=== PATIENT | female | born 1945 | race American Indian/Alaskan Native ===

== ENCOUNTER 2016-07-18 10:41 | Inpatient (IN) | payer MEDICARE ==
--- NOTE | 2016-07-18 11:26 | Emergency Department Report ---
Entered by ERIC MISHRA, acting as scribe for COSTA DEGROOT NP. Chief Complaint: Dyspnea/Respdistress Stated Complaint: ABD PAIN Time Seen by Provider: 07/18/16 11:16 - HPI History of Present Illness: 71 y/o non-toxic, non ill-appearing female in no acute distress presents to ED c /o abdominal bloating and pain described as dull with associated nausea, no vomiting, no diarrhea. Pt reports Hx of chronic SOB, no acute changes today. Reports compliance with her coumadin. - ROS Review of Systems: + abdominal pain, bloating, nausea, SOB - vomiting, diarrhea - Exam Vital Signs: Vital Signs 07/18/16 11:07 Temperature 97.5 F L Pulse Rate 62 Respiratory 20 Rate Blood Pressure 127/82 O2 Sat by Pulse 100 Oximetry Physical Exam: Epigastric abdominal pain, non-tender, no point tenderness, normal bowel sounds x 4, non-distended, lungs clear to auscultation bilaterally MSE screening note: Focused history and physical exam performed. Due to findings the following was ordered: EKG, BMP, CBC, lipase, PTT, PT/INR, Troponin, CXR, CT abd/pelvis w/out contrast ED Disposition for MSE Condition: Stable This documentation as recorded by the scribe,ERIC MISHRA,accurately reflects the service I personally performed and the decisions made by ZANE vera MARTIN, YESENIA.
[2016-07-18 11:58] LABS: Basophils % (Auto) 1.4 % (0.0-1.8); Eosinophils % (Auto) 1.6 % (0.0-4.3); Hematocrit 38.8 % (30.3-42.9); Hemoglobin 12.8 gm/dl (10.1-14.3); Mean Corpuscular HGB Conc 33 % (30-34); Mean Corpuscular Hemoglobin 30 pg (28-32); Mean Corpuscular Volume 92 fl (79-97); Platelet Count 216 K/mm3 (140-440); Red Blood Count 4.24 M/mm3 (3.65-5.03); Red Cell Distribution Width 16.2 % (13.2-15.2); White Blood Count 5.8 K/mm3 (4.5-11.0)
--- NOTE | 2016-07-18 12:05 | XRay Report ---
ROUTINE CHEST, TWO VIEWS: HISTORY: Shortness of breath. Cardiomegaly, pulmonary venous congestion and small pleural effusions are identified. No consolidation or pneumothorax. CABG changes and 2-lead pacemaker device are noted. IMPRESSION: Mild CHF.
[2016-07-18 12:09] LABS: INR 2.51 (0.87-1.13); Partial Thromboplastin Time 43.1 Sec. (24.2-36.6)
[2016-07-18 12:16] LABS: Anion Gap 19 mmol/L; BUN/Creatinine Ratio 25.55; Blood Urea Nitrogen 23 mg/dL (7-17); Calcium 9.5 mg/dL (8.4-10.2); Carbon Dioxide 25 mmol/L (22-30); Chloride 101.4 mmol/L (98-107); Glucose 210 mg/dL (65-100); Lipase 19 units/L (13-60); Potassium 3.8 mmol/L (3.6-5.0); Sodium 142 mmol/L (137-145)
[2016-07-18 12:27] LABS: Cholesterol 205 mg/dL (50-199); HDL Cholesterol 62 mg/dL (40-59); LDL Cholesterol,Direct 126 mg/dL (50-130); Triglycerides 86 mg/dL (2-149)
--- NOTE | 2016-07-18 13:09 | Cat Scan Report ---
CT OF THE ABDOMEN AND PELVIS WITHOUT CONTRAST HISTORY: Abdominal pain. TECHNIQUE: Helical CT without contrast. Sagittal and coronal reformatted images. FINDINGS: Mild cardiomegaly is present. A pacemaker device is partially imaged. The visualized lung bases are clear. The liver, biliary system, spleen and adrenal glands are unremarkable. There is mild fatty atrophy of the pancreas. No mass or inflammation. Bilateral renal cysts are identified. A 5 cm cyst is identified at the superior pole the right kidney. A 1 cm cyst is identified in the midpole of the left kidney. There are extensive renal vascular calcifications but no obvious mass, calculus or hydronephrosis. The bladder is unremarkable. There are diffuse arterial calcifications. No aneurysm is detected. The uterus and adnexa are within normal limits. The bowel loops are unremarkable given no oral contrast was administered. Mild sigmoid diverticulosis is noted. Normal appendix. The bony structures are intact. Mild thoracolumbar spondylosis is noted. IMPRESSION: No acute inflammatory process. Mild cardiomegaly. Diffuse atherosclerotic disease. Bilateral simple renal cysts. Mild sigmoid diverticulosis.
--- NOTE | 2016-07-18 15:37 | History and Physical Report ---
History of Present Illness Chief complaint: 71 YO Female with HTN, CHF, Gout, DM, Shingles, Postherpetic Neuralgia presents to ED for evaluation. Pt states that she has experienced pain in her chest, arm , and back. Pain is 5/10, radiates to left arm and back, not relieved with rest or worsened with exertion. Pain is associated with shortness of breath. Pain began yesterday, and has worsened over the past 12 hours. Pain is intermittent, lasts for several minutes. Pt denies NVD, palpitations, prolonged immobility/ travel, leg swelling, calf pain, hemoptysis, unintentional weight loss, fever, night sweats, productive cough, skin rash, or recent ill contacts. Past History Past Medical History: diabetes, heart failure, hypertension Past Surgical History: CABG, Other (Pacemaker, knee) Social history: , lives with family. denies: smoking, alcohol abuse, prescription drug abuse Family history: diabetes, hypertension Medications and Allergies Allergies Allergy/AdvReac Type Severity Reaction Status Date / Time amoxicillin [Amoxicillin] Allergy Diarrhea Verified 10/17/14 16:33 nifedipine [From Procardia] Allergy Swelling Verified 10/17/14 16:33 Home Medications Medication Instructions Recorded Confirmed Last Taken Type Isosorbide Mononitrate [Imdur] 30 mg PO DAILY 01/28/13 07/18/16 07/17/16 History Multivitamin [Multi-Vitamin Daily] 1 each PO DAILY 01/28/13 07/18/16 07/17/16 History Furosemide [Lasix] 40 mg PO DAILY #30 tablet 05/01/13 07/18/16 07/17/16 Rx Potassium Chloride [Klor-Con 8] 20 meq PO QDAY #30 tablet 05/01/13 07/18/1609/26 Rx Spironolactone [Aldactone] 25 mg PO QDAY #30 tablet 05/01/13 07/18/16 07/17/16 Rx glyBURIDE [Diabeta] 5 mg PO BID #30 tablet 05/01/13 07/18/16 07/17/16 Rx Warfarin [Coumadin] 5 mg PO DAILY@1700 #30 tablet 11/25/13 07/18/16 07/16/16 Rx AtorvaSTATin 80 mg PO DAILY 07/18/16 07/18/16 07/17/16 History Carvedilol [Coreg] 6.25 mg PO BID 07/18/16 07/18/16 07/17/16 History Clopidogrel [Plavix] 75 mg PO QDAY 07/18/16 07/18/16 07/17/16 History Colchicine [Colcrys] 0.6 mg PO DAILY 07/18/16 07/18/16 07/17/16 History Furosemide [Lasix TAB] 40 mg PO DAILY 07/18/16 07/18/16 07/17/16 History Pantoprazole [Protonix] 40 mg PO QDAY 07/18/16 07/18/16 07/17/16 History Sacubitril/Valsartan [Entresto 24 1 each PO BID 07/18/16 07/18/16 07/17/16 History mg-26 mg Tablet] valACYclovir [Valtrex] 500 mg PO BID 07/18/16 07/18/16 07/17/16 History Review of Systems All systems: negative Cardiovascular: chest pain Exam - Constitutional Vitals: Temp Pulse Resp BP Pulse Ox 97.5 F L 62 16 127/82 99 07/18/16 11:07 07/18/16 11:07 07/18/16 12:52 07/18/16 11:07 07/18/16 12:52 General appearance: Present: no acute distress, well-nourished - EENT Eyes: Present: PERRL ENT: hearing intact, clear oral mucosa - Neck Neck: Present: supple, normal ROM - Respiratory Respiratory effort: normal Respiratory: bilateral: diminished - Cardiovascular Heart Sounds: Present: S1 & S2. Absent: rub, click - Extremities Extremities: pulses symmetrical, No edema Peripheral Pulses: within normal limits - Abdominal General gastrointestinal: Present: soft, non-tender, non-distended, normal bowel sounds Female genitourinary: Present: normal - Integumentary Integumentary: Present: clear, warm, dry - Musculoskeletal Musculoskeletal: gait normal, strength equal bilaterally - Psychiatric Psychiatric: appropriate mood/affect, intact judgment & insight - Neurologic Neurologic: CNII-XII intact, moves all extremities Results - Labs CBC & Chem 7: 07/18/16 11:25 07/18/16 11:25 Labs: Abnormal lab results 07/18/16 07/18/16 07/18/16 Range/Units 11:25 11:25 11:25 RDW 16.2 H (13.2-15.2) % Nicholas % (Auto) 10.1 H (0.0-7.3) % PT 27.2 H (12.2-14.9) Sec. INR 2.51 H (0.87-1.13) APTT 43.1 H (24.2-36.6) Sec. BUN 23 H (7-17) mg/dL Glucose 210 H (65-100) mg/dL Troponin T 0.039 H (0.00-0.029) ng/mL Cholesterol 205 H (50-199) mg/dL HDL Cholesterol 62 H (40-59) mg/dL Assessment and Plan - Patient Problems (1) ACS (acute coronary syndrome) Current Visit: Yes Status: Acute Plan to address problem: Cardiology consulted, Serial cardiac enzyme, ekg, telemetry, echo, stress test, d dimer, cta chest, (2) CHF (congestive heart failure) Current Visit: Yes Status: Acute Qualifiers: Congestive heart failure type: C Congestive heart failure chronicity: C Plan to address problem: CHF protocol: fluid restriction, uop q shift, afterload reduction, diuretic therapy, cardiology consulted. (3) Accelerated hypertension Current Visit: Yes Status: Acute Plan to address problem: Monitor bp q shift, resume home medication. (4) Diabetes Current Visit: Yes Status: Acute Qualifiers: Diabetes mellitus type: D Diabetes mellitus complication status: D Diabetes mellitus complication detail: D Diabetic retinopathy severity: D Proliferative retinopathy type: P Diabetes mellitus macular edema: D Diabetes mellitus buttermaker continuous churn insulin use: D Laterality: L Chronic kidney disease stage: C Plan to address problem: ADA diet, insulin, accu check (5) DVT prophylaxis Current Visit: Yes Status: Acute
[2016-07-18] MEDS ORDERED: DULCOLAX PR PRN (15:40)
[2016-07-18] MEDS ORDERED: ZOFRAN IV PRN (15:40)
[2016-07-18] MEDS ORDERED: SODIUM CHLORIDE FLUSH SYRINGE 10 ML IV PRN (15:40)
[2016-07-18] MEDS ORDERED: TYLENOL PO PRN (15:40)
[2016-07-18] MEDS ORDERED: MILK OF MAGNESIA PO PRN (15:40)
[2016-07-18] MEDS ORDERED: DUONEB 0.5 MG-3 MG/3 ML SOLN IH PRN (15:40)
[2016-07-18] MEDS ORDERED: PROVENTIL IH PRN (15:48)
[2016-07-18 16:31] LABS: Creatine Kinase MB 1.2 ng/mL (0.0-4.0)
--- NOTE | 2016-07-18 16:36 | Emergency Department Report ---
ED General Adult HPI - General Chief complaint: Dyspnea/Respdistress Stated complaint: ABD PAIN Time Seen by Provider: 07/18/16 15:13 Source: patient, RN notes reviewed Mode of arrival: Ambulatory Limitations: No Limitations - History of Present Illness Initial comments: Primary care sole layer: Dr. Valenzuela Past medical history: Heart disease, CHF, does not know ejection fraction, resolved shingles, history of CABG, recent diagnosis of pulmonary embolus, currently on Coumadin therapy, left-sided pacemaker This is a 71-year-old female. She is previously unknown to me. The patient presents to the ER with a complaint of epigastric pain, burning and bloating. It is relatively new. It is not ready to the back, arms and neck. There is no vomiting or diaphoresis. There is also left anterior arm pain, and left anterior chest wall pain. The patient had at one point complained of shortness of breath, but to me she denies shortness of breath. She reports compliance with her medications, she denies dietary indiscretions, no fevers or chills. Cannot describe exacerbating or relieving factors. In the ER, x-ray of the chest suggested mild congestive heart failure, she was not found to have an active shingles outbreak, stigmata of old healing vesicular lesions were noted, abdomen was soft and benign, a noncontrast CT scan of the abdomen and pelvis showed no acute disease, elevated troponin was noted and is nonspecific in the context of normal renal function. She is given aspirin. Case is discussed with the Hospital physician, Dr. Hansen, who accepts the patient to his service. He indicates he will contact cardiology if he feels like it is necessary. -: Gradual Location: chest, abdomen, left, upper extremity Severity scale (0 -10): 5 Quality: aching Consistency: intermittent Improves with: other (per hpi) Worsens with: other (per hpi) Associated Symptoms: rash. denies: cough, diaphoresis, fever/chills, headaches , loss of appetite, malaise, nausea/vomiting - Related Data Home Medications Medication Instructions Recorded Confirmed Last Taken Isosorbide Mononitrate [Imdur] 30 mg PO DAILY 01/28/13 07/18/16 07/17/16 Multivitamin [Multi-Vitamin Daily] 1 each PO DAILY 01/28/13 07/18/16 07/17/16 AtorvaSTATin 80 mg PO DAILY 07/18/16 07/18/16 07/17/16 Carvedilol [Coreg] 6.25 mg PO BID 07/18/16 07/18/16 07/17/16 Clopidogrel [Plavix] 75 mg PO QDAY 07/18/16 07/18/16 07/17/16 Colchicine [Colcrys] 0.6 mg PO DAILY 07/18/16 07/18/16 07/17/16 Furosemide [Lasix TAB] 40 mg PO DAILY 07/18/16 07/18/16 07/17/16 Pantoprazole [Protonix] 40 mg PO QDAY 07/18/16 07/18/16 07/17/16 valACYclovir [Valtrex] 500 mg PO BID 07/18/16 07/18/16 07/17/16 Previous Rx's Medication Instructions Recorded Last Taken Type Furosemide [Lasix] 40 mg PO DAILY #30 tablet 05/01/13 07/17/16 Rx Potassium Chloride [Klor-Con 8] 20 meq PO QDAY #30 tablet 05/01/13 07/17/16 Rx Spironolactone [Aldactone] 25 mg PO QDAY #30 tablet 05/01/13 07/17/16 Rx glyBURIDE [Diabeta] 5 mg PO BID #30 tablet 05/01/13 07/17/16 Rx Warfarin [Coumadin] 5 mg PO DAILY@1700 #30 tablet 11/25/13 07/16/16 Rx Valsartan [Diovan] 80 mg PO DAILY #30 tablet 07/20/16 Unknown Rx Allergies Allergy/AdvReac Type Severity Reaction Status Date / Time amoxicillin [Amoxicillin] Allergy Diarrhea Verified 10/17/14 16:33 nifedipine [From Procardia] Allergy Swelling Verified 10/17/14 16:33 shellfish derived Allergy Unknown Verified 07/19/16 07:27 ED Review of Systems ROS: Stated complaint: ABD PAIN Other details as noted in HPI Constitutional: denies: fever Eyes: denies: vision change ENT: denies: epistaxis Respiratory: see HPI Cardiovascular: as per HPI Gastrointestinal: abdominal pain Genitourinary: as per HPI Musculoskeletal: as per HPI Skin: as per HPI Neurological: as per HPI Psychiatric: as per HPI ED Past Medical Hx - Past Medical History Previous Medical History?: Yes Hx Hypertension: Yes Hx Heart Attack/AMI: Yes Hx Congestive Heart Failure: Yes Hx Diabetes: Yes Hx Pulmonary Embolism: Yes Hx Liver Disease: No Hx Arthritis: Yes (prescription for pain medication.) Hx HIV: No - Surgical History Past Surgical History?: Yes Hx Open Heart Surgery: Yes (2009 CABG) Hx Pacemaker: Yes Additional Surgical History: CABG 2010, right knee surgery - Social History Smoking Status: Never Smoker Substance Use Type: Alcohol, Prescribed - Medications Home Medications: Home Medications Medication Instructions Recorded Confirmed Last Taken Type Isosorbide Mononitrate [Imdur] 30 mg PO DAILY 01/28/13 07/18/16 07/17/16 History Multivitamin [Multi-Vitamin Daily] 1 each PO DAILY 01/28/13 07/18/16 07/17/16 History Furosemide [Lasix] 40 mg PO DAILY #30 tablet 05/01/13 07/18/16 07/17/16 Rx Potassium Chloride [Klor-Con 8] 20 meq PO QDAY #30 tablet 05/01/13 07/18/1609/26 Rx Spironolactone [Aldactone] 25 mg PO QDAY #30 tablet 05/01/13 07/18/16 07/17/16 Rx glyBURIDE [Diabeta] 5 mg PO BID #30 tablet 05/01/13 07/18/16 07/17/16 Rx Warfarin [Coumadin] 5 mg PO DAILY@1700 #30 tablet 11/25/13 07/18/16 07/16/16 Rx AtorvaSTATin 80 mg PO DAILY 07/18/16 07/18/16 07/17/16 History Carvedilol [Coreg] 6.25 mg PO BID 07/18/16 07/18/16 07/17/16 History Clopidogrel [Plavix] 75 mg PO QDAY 07/18/16 07/18/16 07/17/16 History Colchicine [Colcrys] 0.6 mg PO DAILY 07/18/16 07/18/16 07/17/16 History Furosemide [Lasix TAB] 40 mg PO DAILY 07/18/16 07/18/16 07/17/16 History Pantoprazole [Protonix] 40 mg PO QDAY 07/18/16 07/18/16 07/17/16 History valACYclovir [Valtrex] 500 mg PO BID 07/18/16 07/18/16 07/17/16 History Valsartan [Diovan] 80 mg PO DAILY #30 tablet 07/20/16 Unknown Rx ED Physical Exam - General Limitations: No Limitations General appearance: alert, in no apparent distress - Head Head exam: Present: atraumatic, normocephalic - Eye Eye exam: Present: normal appearance, EOMI. Absent: nystagmus - ENT ENT exam: Present: normal exam, normal orophraynx, mucous membranes moist, normal external ear exam - Neck Neck exam: Present: normal inspection, full ROM. Absent: tenderness, meningismus - Respiratory Respiratory exam: Present: normal lung sounds bilaterally. Absent: respiratory distress, wheezes, rales, rhonchi, stridor, chest wall tenderness, accessory muscle use, decreased breath sounds - Cardiovascular Cardiovascular Exam: Present: regular rate, normal rhythm, normal heart sounds. Absent: bradycardia, tachycardia, irregular rhythm, systolic murmur, diastolic murmur, rubs, gallop - GI/Abdominal GI/Abdominal exam: Present: soft, normal bowel sounds. Absent: distended, tenderness, guarding, rebound, rigid, pulsatile mass - Extremities Exam Extremities exam: Present: normal inspection, full ROM, normal capillary refill. Absent: tenderness, pedal edema, joint swelling, calf tenderness - Back Exam Back exam: Present: normal inspection, full ROM. Absent: tenderness, CVA tenderness (R), CVA tenderness (L), muscle spasm, paraspinal tenderness, vertebral tenderness - Neurological Exam Neurological exam: Present: alert, oriented X3, normal gait, other (Extraocular movements intact. Tongue midline. No facial droop. Facial sensation intact to light touch in the V1, V2, V3 distribution bilaterally. 5 and 5 strength in 4 extremities.. Sensation is intact to light touch in 4 extremities.). Absent : motor sensory deficit - Psychiatric Psychiatric exam: Present: normal affect, normal mood - Skin Skin exam: Present: dry, rash (there is no redness, pus or streaking. Old healing vesicles noted. No active vesicular outbreak noted. No cellulitis.) ED Course Vital Signs 07/18/16 07/18/16 07/18/16 11:07 12:52 16:12 Temperature 97.5 F L 98.7 F Pulse Rate 62 68 Respiratory 20 16 16 Rate Blood Pressure 127/82 Blood Pressure 145/85 [Left] O2 Sat by Pulse 100 99 99 Oximetry - Reevaluation(s) Reevaluation #1: 07/18/16 16:35 differential diagnosis: GERD, reflux, hiatal hernia Assessment and plan: 71-year-old female with atypical symptoms, reported intermittent shortness of breath, epigastric abdominal discomfort, nonspecific troponin, x-ray of the chest suggesting mild CHF, noncontrast CT scan of the belly not showing anything significant to be admitted for further cardiology evaluation and management. 07/18/16 16:46 ED Medical Decision Making - Lab Data Result diagrams: 07/18/16 11:25 07/20/16 09:30 Vital Signs 07/18/16 07/18/16 07/18/16 11:07 12:52 16:12 Temperature 97.5 F L 98.7 F Pulse Rate 62 68 Respiratory 20 16 16 Rate Blood Pressure 127/82 Blood Pressure 145/85 [Left] O2 Sat by Pulse 100 99 99 Oximetry Lab Results 07/18/16 07/18/16 07/18/16 Range/Units 11:25 11:25 11:25 WBC 5.8 (4.5-11.0) K/mm3 RBC 4.24 (3.65-5.03) M/mm3 Hgb 12.8 (10.1-14.3) gm/dl Hct 38.8 (30.3-42.9) % MCV 92 (79-97) fl MCH 30 (28-32) pg MCHC 33 (30-34) % RDW 16.2 H (13.2-15.2) % Plt Count 216 (140-440) K/mm3 Lymph % (Auto) 31.7 (13.4-35.0) % Campbell % (Auto) 10.1 H (0.0-7.3) % Eos % (Auto) 1.6 (0.0-4.3) % Baso % (Auto) 1.4 (0.0-1.8) % Lymph # 1.8 (1.2-5.4) K/mm3 Campbell # 0.6 (0.0-0.8) K/mm3 Eos # 0.1 (0.0-0.4) K/mm3 Baso # 0.1 (0.0-0.1) K/mm3 Seg Neutrophils % 55.2 (40.0-70.0) % Seg Neutrophils # 3.2 (1.8-7.7) K/mm3 PT 27.2 H (12.2-14.9) Sec. INR 2.51 H (0.87-1.13) APTT 43.1 H (24.2-36.6) Sec. D-Dimer (0-234) ng/mlDDU Sodium 142 (137-145) mmol/L Potassium 3.8 (3.6-5.0) mmol/L Chloride 101.4 (98-107) mmol/L Carbon Dioxide 25 (22-30) mmol/L Anion Gap 19 mmol/L BUN 23 H (7-17) mg/dL Creatinine 0.9 (0.7-1.2) mg/dL Estimated GFR > 60 ml/min BUN/Creatinine Ratio 25.55 % Glucose 210 H (65-100) mg/dL Calcium 9.5 (8.4-10.2) mg/dL Total Creatine Kinase (30-135) units/L CK-MB (CK-2) (0.0-4.0) ng/mL CK-MB (CK-2) Rel Index (0-4) Troponin T 0.039 H (0.00-0.029) ng/mL Triglycerides 86 (2-149) mg/dL Cholesterol 205 H (50-199) mg/dL LDL Cholesterol Direct 126 (50-130) mg/dL HDL Cholesterol 62 H (40-59) mg/dL Cholesterol/HDL Ratio 3.30 % Lipase 19 (13-60) units/L 07/18/16 07/18/16 Range/Units 15:48 15:48 WBC (4.5-11.0) K/mm3 RBC (3.65-5.03) M/mm3 Hgb (10.1-14.3) gm/dl Hct (30.3-42.9) % MCV (79-97) fl MCH (28-32) pg MCHC (30-34) % RDW (13.2-15.2) % Plt Count (140-440) K/mm3 Lymph % (Auto) (13.4-35.0) % Campbell % (Auto) (0.0-7.3) % Eos % (Auto) (0.0-4.3) % Baso % (Auto) (0.0-1.8) % Lymph # (1.2-5.4) K/mm3 Campbell # (0.0-0.8) K/mm3 Eos # (0.0-0.4) K/mm3 Baso # (0.0-0.1) K/mm3 Seg Neutrophils % (40.0-70.0) % Seg Neutrophils # (1.8-7.7) K/mm3 PT (12.2-14.9) Sec. INR (0.87-1.13) APTT (24.2-36.6) Sec. D-Dimer 512.82 H (0-234) ng/mlDDU Sodium (137-145) mmol/L Potassium (3.6-5.0) mmol/L Chloride (98-107) mmol/L Carbon Dioxide (22-30) mmol/L Anion Gap mmol/L BUN (7-17) mg/dL Creatinine (0.7-1.2) mg/dL Estimated GFR ml/min BUN/Creatinine Ratio % Glucose (65-100) mg/dL Calcium (8.4-10.2) mg/dL Total Creatine Kinase 53 (30-135) units/L CK-MB (CK-2) 1.2 (0.0-4.0) ng/mL CK-MB (CK-2) Rel Index 2.2 (0-4) Troponin T 0.042 H (0.00-0.029) ng/mL Triglycerides (2-149) mg/dL Cholesterol (50-199) mg/dL LDL Cholesterol Direct (50-130) mg/dL HDL Cholesterol (40-59) mg/dL Cholesterol/HDL Ratio % Lipase (13-60) units/L - EKG Data -: EKG Interpreted by Me - EKG Data When compared to previous EKG there are: previous EKG unavailable 07/18/16 16:47 Normal sinus, 68 bpm, left axis deviation, left anterior fascicular block, abnormal EKG, not STEMI. - Radiology Data Radiology results: report reviewed, image reviewed Critical care attestation.: If time is entered above; I have spent that time in minutes in the direct care of this critically ill patient, excluding procedure time. ED Disposition Clinical Impression: Acute abdominal pain, Elevated troponin Disposition: OP ADMITTED IP TO THIS HOSP Is pt being admited?: Yes Does the pt Need Aspirin: Yes Condition: Stable
[2016-07-18] MEDS ORDERED: ASPIRIN PO ONE (16:48)
[2016-07-18] MEDS: COUMADIN PO SCH (18:57)
[2016-07-18 20:23] LABS: Creatine Kinase MB 1.2 ng/mL (0.0-4.0)
[2016-07-18] MEDS: COREG PO SCH (21:13)
[2016-07-18] MEDS: PERCOCET 5/325 PO PRN (23:21)
[2016-07-19 00:11] LABS: Creatine Kinase MB 1.2 ng/mL (0.0-4.0)
[2016-07-19 06:48] LABS: INR 2.42 (0.87-1.13)
[2016-07-19] MEDS ORDERED: NON-FORMULARY (Atorvastatin 80 MG) PO SCH (10:00)
[2016-07-19] MEDS ORDERED: KLOR-CON 8 PO SCH (10:00)
[2016-07-19] MEDS ORDERED: NON-FORMULARY (Multivitamin [Multi-Vitamin Daily] 1 EACH) PO SCH (10:00)
[2016-07-19] MEDS ORDERED: ISOSORBIDE MONONITRATE 30 MG PO SCH (10:00)
[2016-07-19] MEDS ORDERED: LEXISCAN IV ONE ×2 (10:41→10:48)
--- NOTE | 2016-07-19 12:02 | Consultation ---
History of Present Illness Consult date: 07/19/16 Requesting physician: GRETTA TRAN Consult reason: abnormal cardiac enzymes History of present illness: The patient is a 71-year-old female who is followed in our office by Dr. Valenzuela. She presented with c/o epigastric pain and tenderness and nausea for the past several days prior to arrival. She also reports orthopnea and SOB, which are unchanged from her baseline. She has a past medical history significant for an area artery disease status post CABG in 2010, ischemic cardiomyopathy, AICD in situ, chronic systolic heart failure, paroxysmal atrial fibrillation (on Coumadin), hypertension, diabetes, hyperlipidemia. She denies any precipitating, aggravating, or alleviating factors. She denies chest pain. She reports compliance with her medications and dietary restrictions. Past History Past Medical History: atrial fib, CAD, diabetes, heart failure, hypertension, other (ICMP) Past Surgical History: CABG, Other (Pacemaker, knee) Social history: , lives with family. denies: smoking, alcohol abuse, prescription drug abuse Family history: diabetes, hypertension Medications and Allergies Allergies Allergy/AdvReac Type Severity Reaction Status Date / Time amoxicillin [Amoxicillin] Allergy Diarrhea Verified 10/17/14 16:33 nifedipine [From Procardia] Allergy Swelling Verified 10/17/14 16:33 shellfish derived Allergy Unknown Verified 07/19/16 07:27 Home Medications Medication Instructions Recorded Confirmed Last Taken Type Isosorbide Mononitrate [Imdur] 30 mg PO DAILY 01/28/13 07/18/16 07/17/16 History Multivitamin [Multi-Vitamin Daily] 1 each PO DAILY 01/28/13 07/18/16 07/17/16 History Furosemide [Lasix] 40 mg PO DAILY #30 tablet 05/01/13 07/18/16 07/17/16 Rx Potassium Chloride [Klor-Con 8] 20 meq PO QDAY #30 tablet 05/01/13 07/18/1609/26 Rx Spironolactone [Aldactone] 25 mg PO QDAY #30 tablet 05/01/13 07/18/16 07/17/16 Rx glyBURIDE [Diabeta] 5 mg PO BID #30 tablet 05/01/13 07/18/16 07/17/16 Rx Warfarin [Coumadin] 5 mg PO DAILY@1700 #30 tablet 0907/18/16 07/16/16 Rx AtorvaSTATin 80 mg PO DAILY 07/18/16 07/18/16 07/17/16 History Carvedilol [Coreg] 6.25 mg PO BID 07/18/16 07/18/16 07/17/16 History Clopidogrel [Plavix] 75 mg PO QDAY 07/18/16 07/18/16 07/17/16 History Colchicine [Colcrys] 0.6 mg PO DAILY 07/18/16 07/18/16 07/17/16 History Furosemide [Lasix TAB] 40 mg PO DAILY 07/18/16 07/18/16 07/17/16 History Pantoprazole [Protonix] 40 mg PO QDAY 07/18/16 07/18/16 07/17/16 History Sacubitril/Valsartan [Entresto 24 1 each PO BID 07/18/16 07/18/16 07/17/16 History mg-26 mg Tablet] valACYclovir [Valtrex] 500 mg PO BID 07/18/16 07/18/16 07/17/16 History Active Meds: Active Medications Acetaminophen (Tylenol) 650 mg PO Q4H PRN PRN Reason: Pain MILD(1-3)/Fever >100.5/PHILLIPS Albuterol (Proventil) 2.5 mg IH Q4HRT PRN PRN Reason: Shortness Of Breath Atorvastatin Calcium (Lipitor) 40 mg PO QHS [facility] Last Admin: 07/18/16 21:13 Dose: Not Given Bisacodyl (Dulcolax) 10 mg ID QDAY PRN PRN Reason: Constipation unrelieved by MOM Carvedilol (Coreg) 6.25 mg PO BID [facility] Last Admin: 07/18/16 21:13 Dose: 6.25 mg Clopidogrel Bisulfate (Plavix) 75 mg PO QDAY [facility] Colchicine (Colcrys) 0.6 mg PO DAILY [facility] Furosemide (Lasix) 40 mg PO DAILY [facility] Isosorbide Mononitrate (Imdur) 30 mg PO DAILY [facility] Magnesium Hydroxide (Milk Of Magnesia) 30 ml PO Q4H PRN PRN Reason: Constipation Miscellaneous Medication (Sacubitril/Valsartan [Entresto 24 Mg-26 Mg Tablet]) 1 each PO BID [facility] Multivitamins/Minerals (Theragran-M Tab) 1 each PO QDAY [facility] Ondansetron HCl (Zofran) 4 mg IV Q8H PRN PRN Reason: N/V unrelieved by Reglan Oxycodone/Acetaminophen (Percocet 5/325) 1 tab PO Q6H PRN PRN Reason: Pain , Severe (7-10) Last Admin: 07/18/16 23:21 Dose: 1 tab Pantoprazole Sodium (Protonix) 40 mg PO QDAY [facility] Potassium Chloride (K-Dur) 20 meq PO QDAY [facility] Sodium Chloride (Sodium Chloride Flush Syringe 10 Ml) 10 ml IV PRN PRN PRN Reason: LINE FLUSH Spironolactone (Aldactone) 25 mg PO QDAY [facility] Warfarin Sodium (Coumadin) 5 mg PO DAILY@1700 [facility] PRN Reason: Protocol Last Admin: 07/18/16 18:57 Dose: 5 mg Review of Systems Constitutional: no weight loss, no weight gain, no fever, no chills, no sweats Ears, nose, mouth and throat: no ear pain, no nose pain, no sinus pressure, no sinus pain Cardiovascular: orthopnea, shortness of breath, dyspnea on exertion, no chest pain, no palpitations, no rapid/irregular heart beat, no edema, no syncope, no lightheadedness, no leg edema Respiratory: shortness of breath, dyspnea on exertion, no cough, no congestion, no wheezing, no pain Gastrointestinal: abdominal pain, nausea, no vomiting, no diarrhea, no constipation, no change in bowel habits Genitourinary Female: no pelvic pain, no flank pain, no dysuria, no urinary frequency, no urgency Musculoskeletal: no neck stiffness, no neck pain, no shooting arm pain, no arm numbness/tingling, no low back pain, no shooting leg pain, no leg numbness/ tingling, no redness of joints Integumentary: no rash, no pruritis, no redness, no sores, no wounds Neurological: no paralysis, no weakness, no parathesias, no numbness, no tingling Endocrine: no cold intolerance, no heat intolerance Hematologic/Lymphatic: no easy bruising, no easy bleeding, no lymphadenopathy Allergic/Immunologic: no urticaria, no wheezing, no persistent infections Physical Examination Vital Signs Temp Pulse Resp BP Pulse Ox 97.5 F L 62 20 127/82 100 07/18/16 11:07 07/18/16 11:07 07/18/16 11:07 07/18/16 11:07 07/18/16 11:07 General appearance: no acute distress HEENT: Positive: PERRL, Normocephaly, Mucus Membranes Moist Neck: Positive: neck supple, trachea midline Cardiac: Positive: Reg Rate and Rhythm, S1/S2, Systolic Murmur Lungs: Positive: clear to auscultation Neuro: Positive: Grossly Intact, Cranial Nerve 2-12 Intact Abdomen: Positive: Soft, Active Bowel Sounds, Tender Skin: Positive: Clear. Negative: Rash, Wound Musculoskeletal: No Fluid Collection, No Pain, Normal Range of Motion Extremities: Present: upper extr. pulses, lower extr. pulses. Absent: edema Results 07/18/16 11:25 07/18/16 11:25 Cardiac Enzymes 07/18/16 07/18/16 Range/Units 19:27 23:13 CK-MB (CK-2) 1.2 1.2 (0.0-4.0) ng/mL Coagulation 07/19/16 Range/Units 05:41 PT 26.4 H (12.2-14.9) Sec. INR 2.42 H (0.87-1.13) - Imaging and Cardiology Echo: report reviewed EKG: report reviewed, image reviewed EKG interpretations - Telemetry EKG Rhythm: Sinus Rhythm - EKG Sinus rhythms and dysrhythmias: sinus rhythm AV and intraventricular conduction: left bundle branch block Assessment and Plan Plan: Give extra dose of IV lasix, 20mg, now. Cont all other current medical management, including Entresto (non-formulary). S/p lexiscan MPI stress test this AM which was negative for ischemia. Await echo. Possible d/c home in AM. The patient has been seen in conjunction with Dr. Canchola who agrees with the assessment and plan of care. - Patient Problems (1) Acute on chronic systolic heart failure Current Visit: Yes Status: Acute (2) Epigastric pain Current Visit: Yes Status: Acute (3) Elevated troponin Current Visit: Yes Status: Acute Plan to address problem: negative for AMI (4) CAD (coronary artery disease) Current Visit: Yes Status: Chronic Qualifiers: Coronary Disease-Associated Artery/Lesion type: C [place] vs. transplanted heart: N Associated angina: A (5) S/P CABG x 4 Current Visit: No Status: Chronic (6) Cardiomyopathy, ischemic Current Visit: Yes Status: Chronic (7) Diabetes mellitus Current Visit: Yes Status: Chronic Qualifiers: Diabetes mellitus type: D Diabetes mellitus complication status: D Diabetes mellitus complication detail: D Diabetic retinopathy severity: D Proliferative retinopathy type: P Diabetes mellitus macular edema: D Diabetes mellitus parts counterman insulin use: D Laterality: L Chronic kidney disease stage: C (8) HTN (hypertension) Current Visit: Yes Status: Chronic Qualifiers: Hypertension type: H (9) Hyperlipidemia Current Visit: Yes Status: Chronic Qualifiers: Hyperlipidemia type: H (10) Paroxysmal a-fib Current Visit: Yes Status: Chronic (11) AICD (automatic cardioverter/defibrillator) present Current Visit: Yes Status: Chronic
--- NOTE | 2016-07-19 12:12 | Admit Criteria Form ---
<CEZAR AMOR - Last Filed: 07/19/16 12:11> Admission Criteria Documentation: CHEST PAIN Clinical Indications for Admission to Inpatient Care (Place 'X' for any and all applicable criteria): Admission is indicated for chest pain and ANY ONE of the following(1)(2)(3)(4)(5 ): [X]I. Angina with acute coronary syndrome (Also use Myocardial Infarction or Angina guideline) [ ]II. Hemodynamic instability [ ]III. Angina needing acute intervention as indicated by ALL of the following( 11)(12): [ ]a) Unstable angina is present as indicated by angina that is ANY ONE of the following: [ ]i) New onset [ ]ii) Nocturnal [ ]iii) Prolonged at rest [ ]iv) Progressive [ ]b) Angina warrants acute intervention as indicated by ANY ONE of the following: [ ]i) Recurrent angina (e.g, not responding as previously to treatment) [ ]ii) Angina at rest or with low-level activities despite initial medical therapy [ ]iii) New or presumably new ST-segment depression on ECG [ ]iv) Signs or symptoms of heart failure (eg, dyspnea, pulmonary edema) [ ]v) New or worsening mitral regurgitation [ ]vi) Hemodynamic instability [ ]vii) Dangerous arrhythmia (eg, sustained ventricular tachycardia) [ ]viii) History of percutaneous coronary intervention within 6 months [ ]ix) History of coronary artery bypass graft surgery [ ]x) LALO risk score of 2 or greater[A] [ ]xi) History of Diabetes(14) [ ]xii) High-risk cardiac ischemia findings on noninvasive testing (e.g, echocardiogram, treadmill testing, nuclear scan) [ ]xiii) Chronic renal insufficiency (ie, estimated GFR less than 60 mL/min/1.732m) [ ]xiv) Left ventricular ejection fraction less than 40% [ ]IV. Evidence of MS (eg, cardiac biomarkers positive, ST-segment elevation on ECG) also use Myocardial Infarction Criteria Form. [ ]V. Pulmonary edema [ ]. Respiratory distress [ ]VII. Chest pain indicative of serious diagnosis other than coronary artery disease (eg, aortic dissection) [ ]VIII. Contraindications and/or Inappropriate clinical situations for Observational Care in patients with Chest Pain, when ANY ONE of the following is required: [ ]a) Patient with risk factor for pulmonary embolism, acute coronary syndrome and myocardial infarction (18) [ ]b) Patient with Pulmonary embolism require an average LOS of 4.3 days, therefore emergency department observation management is inappropriate 18,23 [ ]c) Painful condition/s in the elderly, have the highest rate of recidivism after emergency department observation management (10.8%) 20,21,22 [ ]d) Elevated cardiac biomarker requires intensive and exhaustive care (19) [ ]IX. General contraindications and/or Inappropriate clinical situations for Observational Care in patients with Chest Pain, when ANY ONE of the following is required: [ ]a) Prediction of prolongation of LOS based on ANY ONE of the following may be considered as a contraindication for observational care 2, 3, 4, 5, 6, 7, 8, 9, 10, 11 [ ]i) Age > 65 yrs. [ ]ii) Patient arriving by ambulance [ ]iii) Patient with high acuity [ ]iv) Patient requiring vital sign monitoring [ ]v) Patient on IV medication [ ]b) Systolic blood pressures 180mmHg 3,12 [ ]c) Patient with altered mental status including delirium and other alteration of consciousness, (3) [ ]d) Patient whose discharge disposition will be to a [facility] home or rehabilitation home should not be managed in Emergency Department Observation Unit. CMS rule requires 3 days hospital stay before such placement. 3,13 [ ]e) Patient with failure to thrive due to broad array of etiologies 3,16,17 [ ]f) Inability to ambulate 3,14 Extended stay beyond goal length of stay may be needed for (1)(28): [ ]a) Specific condition diagnosed after evaluation (eg, pulmonary embolism, aortic dissection) [ ]b) Unstable angina [ ]c) Continued suspicion of acute coronary syndrome with inability to complete needed cardiac evaluation (eg, patient clinically unable to undergo stress testing) [ ]d) Myocardial infarction (Contents from ANGINA and CHEST PAIN clinical indications for admission to inpatient care have been integrated in this form) The original [facility] content created by [employer] has been revised. The portions of the content which have been revised are identified through the use of italic text or in bold, and [facility] has neither reviewed nor approved the modified material. All other unmodified content is copyright [facility]. Please see references footnoted in the original [facility] edition 2016 Admission Criteria Met: Yes <GRETTA TRAN - Last Filed: 07/20/16 12:24> Admission Criteria Met: Yes
[2016-07-19] MEDS ORDERED: LASIX IV ONE ×2 (13:00→16:00)
--- NOTE | 2016-07-19 13:01 | Progress Note ---
Assessment and Plan - Patient Problems (1) ACS (acute coronary syndrome) Current Visit: Yes Status: Acute Plan to address problem: Cardiology consulted, Serial cardiac enzyme, ekg, telemetry, echo, stress test, d dimer, cta chest, (2) CHF (congestive heart failure) Current Visit: Yes Status: Acute Qualifiers: Congestive heart failure type: C Congestive heart failure chronicity: C Plan to address problem: CHF protocol: fluid restriction, uop q shift, afterload reduction, diuretic therapy, cardiology consulted. (3) Accelerated hypertension Current Visit: Yes Status: Acute Plan to address problem: Monitor bp q shift, resume home medication. (4) Diabetes Current Visit: Yes Status: Acute Qualifiers: Diabetes mellitus type: D Diabetes mellitus complication status: D Diabetes mellitus complication detail: D Diabetic retinopathy severity: D Proliferative retinopathy type: P Diabetes mellitus macular edema: D Diabetes mellitus joint terminal attack controller insulin use: D Laterality: L Chronic kidney disease stage: C Plan to address problem: ADA diet, insulin, accu check (5) DVT prophylaxis Current Visit: Yes Status: Acute History Interval history: Pt resting in be, No reported nursing events. Pt denies pain. discussed care plan with family. Hospitalist Physical - Constitutional Vitals: Temp Pulse Resp BP Pulse Ox 97.7 F 65 20 139/80 100 07/19/16 07:05 07/19/16 11:45 07/19/16 07:05 07/19/16 11:29 07/19/16 07:05 General appearance: Present: no acute distress - EENT Eyes: Present: PERRL, EOM intact ENT: hearing intact - Neck Neck: Present: supple - Respiratory Respiratory: bilateral: diminished - Cardiovascular Rhythm: regular Heart Sounds: Present: S1 & S2 - Extremities Extremities: no ischemia Extremity abnormal: edema Peripheral Pulses: within normal limits - Abdominal General gastrointestinal: soft, non-tender, non-distended - Integumentary Integumentary: Present: clear, dry - Psychiatric Psychiatric: appropriate mood/affect - Neurologic Neurologic: CNII-XII intact Results - Labs CBC & Chem 7: 07/18/16 11:25 07/18/16 11:25 Labs: Laboratory Last Values WBC 5.8 K/mm3 (4.5-11.0) 07/18/16 11:25 RBC 4.24 M/mm3 (3.65-5.03) 07/18/16 11:25 Hgb 12.8 gm/dl (10.1-14.3) 07/18/16 11:25 Hct 38.8 % (30.3-42.9) 07/18/16 11:25 MCV 92 fl (79-97) 07/18/16 11:25 MCH 30 pg (28-32) 07/18/16 11:25 MCHC 33 % (30-34) 07/18/16 11:25 RDW 16.2 % (13.2-15.2) H 07/18/16 11:25 Plt Count 216 K/mm3 (140-440) 07/18/16 11:25 Lymph % (Auto) 31.7 % (13.4-35.0) 07/18/16 11:25 [place] % (Auto) 10.1 % (0.0-7.3) H 07/18/16 11:25 Eos % (Auto) 1.6 % (0.0-4.3) 07/18/16 11:25 Baso % (Auto) 1.4 % (0.0-1.8) 07/18/16 11:25 Lymph # 1.8 K/mm3 (1.2-5.4) 07/18/16 11:25 [place] # 0.6 K/mm3 (0.0-0.8) 07/18/16 11:25 Eos # 0.1 K/mm3 (0.0-0.4) 07/18/16 11:25 Baso # 0.1 K/mm3 (0.0-0.1) 07/18/16 11:25 Seg Neutrophils % 55.2 % (40.0-70.0) 07/18/16 11:25 Seg Neutrophils # 3.2 K/mm3 (1.8-7.7) 07/18/16 11:25 PT 26.4 Sec. (12.2-14.9) H 07/19/16 05:41 INR 2.42 (0.87-1.13) H 07/19/16 05:41 APTT 43.1 Sec. (24.2-36.6) H 07/18/16 11:25 D-Dimer 512.82 ng/mlDDU (0-234) H 07/18/16 15:48 Sodium 142 mmol/L (137-145) 07/18/16 11:25 Potassium 3.8 mmol/L (3.6-5.0) 07/18/16 11:25 Chloride 101.4 mmol/L (98-107) 07/18/16 11:25 Carbon Dioxide 25 mmol/L (22-30) 07/18/16 11:25 Anion Gap 19 mmol/L 07/18/16 11:25 BUN 23 mg/dL (7-17) H 07/18/16 11:25 Creatinine 0.9 mg/dL (0.7-1.2) 07/18/16 11:25 Estimated GFR > 60 ml/min 07/18/16 11:25 BUN/Creatinine Ratio 25.55 % 07/18/16 11:25 Glucose 210 mg/dL (65-100) H 07/18/16 11:25 POC Glucose 166 (70-105) H 07/19/16 07:59 Calcium 9.5 mg/dL (8.4-10.2) 07/18/16 11:25 Total Creatine Kinase 53 units/L (30-135) 07/18/16 23:13 CK-MB (CK-2) 1.2 ng/mL (0.0-4.0) 07/18/16 23:13 CK-MB (CK-2) Rel Index 2.2 (0-4) 07/18/16 23:13 Troponin T 0.054 ng/mL (0.00-0.029) H D 07/18/16 23:13 NT-Pro-B Natriuret Pep 8746 pg/mL (0-900) H 07/18/16 15:24 Triglycerides 86 mg/dL (2-149) 07/18/16 11:25 Cholesterol 205 mg/dL (50-199) H 07/18/16 11:25 LDL Cholesterol Direct 126 mg/dL (50-130) 07/18/16 11:25 HDL Cholesterol 62 mg/dL (40-59) H 07/18/16 11:25 Cholesterol/HDL Ratio 3.30 % 07/18/16 11:25 Lipase 19 units/L (13-60) 07/18/16 11:25
[2016-07-19] MEDS: ALDACTONE PO SCH (16:04)
[2016-07-19] MEDS: IMDUR PO SCH (16:05)
[2016-07-19] MEDS: COREG PO SCH ×2 (16:05→22:29)
[2016-07-19] MEDS: COLCRYS PO SCH (16:05)
[2016-07-19] MEDS: K-DUR PO SCH (16:05)
[2016-07-19] MEDS: LASIX PO SCH (16:06)
[2016-07-19] MEDS: PROTONIX PO SCH (16:06)
[2016-07-19] MEDS: PLAVIX PO SCH (16:06)
[2016-07-19] MEDS: THERAGRAN-M Tab PO SCH (16:06)
[2016-07-19] MEDS: COUMADIN PO SCH (17:50)
[2016-07-19] MEDS: SACUBITRIL PO SCH (17:51)
[2016-07-19] MEDS: VALSARTAN PO SCH (17:51)
[2016-07-19] MEDS: PERCOCET 5/325 PO PRN (22:29)
--- NOTE | 2016-07-20 03:10 | Treadmill Report ---
PROCEDURE: Nuclear perfusion study. READING PHYSICIAN: Dr. Valenzuela REASON FOR STUDY: Chest pain. IMAGING PROTOCOL: The patient received 10 mCi of Technetium 99m Tetrofosmin for resting image and 28 mCi of Technetium 99m Tetrofosmin for stress imaging. The imaging for the whole procedure was completed 30-90 minutes following the initial injection of Technetium 99m tetrofosmin. The SPECT imaging in the 180 degree arc was performed in the right anterior oblique projection. Computerized reconstruction of the images was performed for analysis. IMAGING RESULTS: Cavity is dilated on both stress and rest. Distribution radionuclide is normal in the anterior, septal, largely absent at the apical, anterior apical, inferior moderate of large and inferolateral region. Gated SPECT, EF 18% with global hypokinesis. No reversibility noted in the inferior apical and in the inferolateral regions, but large absent in the those territories. The patient infused Lexiscan with no EKG changes. SUMMARY: 1. Negative Lexiscan EKG. 2. No significant stress ischemia. 3. There is large infarction in the inferior, apical, apical inferior, inferolateral and regions with normal perfusion in the anterior and septal region. Gated SPECT EF 18%. JOB# [id number] CASSIE/LEONIDES
[2016-07-20 07:38] LABS: INR 2.67 (0.87-1.13)
[2016-07-20 09:25] VITALS: BP 108/69
--- NOTE | 2016-07-20 09:43 | Progress Note ---
Assessment and Plan acute on chronic systolic heart failure NSTEMI type 2 htn chol ischemic cmp aicd rec: pt has no ischemia on stress and echo ef 20% and pt is compensated, pt could not tolerate entresto and cont diovan, coreg, lasix and aldactone and coumdain and followup in office Subjective Date of service: 07/20/16 Principal diagnosis: sob Interval history: pt sob has improved and abd pain has improved Objective Vital Signs Temp Pulse Pulse Resp Resp BP BP 07/20/16 08:50 97.8 F 60 18 07/20/16 04:05 98.3 F 80 18 118/80 07/20/16 00:00 98.3 F 61 18 103/57 07/19/16 23:29 20 07/19/16 22:29 63 20 103/62 07/19/16 20:52 22 07/19/16 20:51 22 07/19/16 20:00 98.0 F 63 18 103/62 07/19/16 19:37 60 07/19/16 16:00 98.2 F 80 20 135/75 07/19/16 12:00 98 F 62 20 126/73 07/19/16 11:45 65 07/19/16 11:29 60 139/80 07/19/16 11:28 71 143/91 07/19/16 11:27 75 147/81 07/19/16 11:26 76 141/96 07/19/16 11:25 76 124/83 07/19/16 11:23 73 141/94 BP Pulse Ox 07/20/16 08:50 108/69 99 07/20/16 04:05 97 07/20/16 00:00 98 07/19/16 23:29 07/19/16 22:29 07/19/16 20:52 96 07/19/16 20:51 07/19/16 20:00 97 07/19/16 19:37 07/19/16 16:00 97 07/19/16 12:00 97 07/19/16 11:45 07/19/16 11:29 07/19/16 11:28 07/19/16 11:27 07/19/16 11:26 07/19/16 11:25 07/19/16 11:23 - Physical Examination General: No Apparent Distress HEENT: Positive: PERRL, Normocephaly, Mucus Membranes Moist Neck: Positive: neck supple, trachea midline Cardiac: Positive: Reg Rate and Rhythm Lungs: Positive: clear to auscultation Neuro: Positive: Grossly Intact, Cranial Nerve 2-12 Intact Abdomen: Positive: Soft, Active Bowel Sounds, Tender Skin: Positive: Clear. Negative: Rash, Wound Musculoskeletal: No Fluid Collection, No Pain, Normal Range of Motion Extremities: Present: upper extr. pulses, lower extr. pulses. Absent: edema - Labs and Meds Coagulation 07/20/16 Range/Units 05:44 PT 28.6 H (12.2-14.9) Sec. INR 2.67 H (0.87-1.13) - Imaging and Cardiology EKG: report reviewed, image reviewed Echo: report reviewed - Telemetry EKG Rhythm: Sinus Rhythm (paced with non sustained vtach 8 beat) - EKG Sinus rhythms and dysrhythmias: sinus rhythm AV and intraventricular conduction: left bundle branch block
--- NOTE | 2016-07-20 09:49 | Discharge Summary ---
Providers - Providers Date of Admission: 07/18/16 16:22 Attending physician: GRETTA TRAN Primary care physician: RN IMCU Hospitalization Condition: Stable Hospital course: 71 YO female admitted for ACD, Accelerated HTN, and Acute on Chronic CHF with suspected Decompensation. Pt admitted to telemetry. Pt treated IAW chest pain protocol. Serial cardiac enzymes were elevated, ekg and telemetry monitoring were unremarkable. Cardiology team consulted, and patient underwent stress test which was negative for ischemia. Echo was completed and showed EF of 15%,with systolic disfunction. Pt medically optimized. Pt cleared for discharge home and recommended discontinuation of entresto as per cardiology. Pt seen and evaluated prior to discharge but no significant new physical exam findings since admission. Pt counseled regarding medication compliance, low sodium diet. Pt discharged home and instructed to f/u pcp 1wk, and f/u with cardiology as directed. 35 minutes dedicated to patient discharge and education. Disposition: DISCHARGED TO HOME OR SELFCARE - Discharge Diagnoses (1) ACS (acute coronary syndrome) Status: Acute (2) CHF (congestive heart failure) Status: Acute Qualifiers: Congestive heart failure type: systolic Congestive heart failure chronicity : C (3) Accelerated hypertension Status: Acute (4) Diabetes Status: Acute Qualifiers: Diabetes mellitus type: D Diabetes mellitus complication status: D Diabetes mellitus complication detail: D Diabetic retinopathy severity: D Proliferative retinopathy type: P Diabetes mellitus macular edema: D Diabetes mellitus alf insulin use: D Laterality: L Chronic kidney disease stage: C (5) DVT prophylaxis Status: Acute Core Measure Documentation - Palliative Care Palliative Care/ Comfort Measures: Not Applicable - Core Measures Any of the following diagnoses?: heart failure - Heart Failure Discharge Requirements RICK/ARB for LVSD if EF <40%: Yes Beta brittany at discharge: Yes Exam - Constitutional Vitals: Temp Pulse Resp BP Pulse Ox 97.8 F 60 18 108/69 99 07/20/16 08:50 07/20/16 08:50 07/20/16 08:50 07/20/16 08:50 07/20/16 08:50 General appearance: Present: no acute distress, well-nourished - EENT Eyes: Present: PERRL ENT: hearing intact, clear oral mucosa - Neck Neck: Present: supple, normal ROM - Respiratory Respiratory effort: normal Respiratory: bilateral: CTA - Cardiovascular Heart Sounds: Present: S1 & S2. Absent: rub, click - Extremities Extremities: pulses symmetrical, No edema Peripheral Pulses: within normal limits - Abdominal General gastrointestinal: Present: soft, non-tender, non-distended, normal bowel sounds Female genitourinary: Present: normal - Integumentary Integumentary: Present: clear, warm, dry - Musculoskeletal Musculoskeletal: gait normal, strength equal bilaterally - Psychiatric Psychiatric: appropriate mood/affect, intact judgment & insight - Neurologic Neurologic: CNII-XII intact, moves all extremities Plan Activity: advance as tolerated Diet: low salt Special Instructions: record daily weights, record daily BP diary Follow up with: PRIMARY CARE, [Primary Care Provider] - 3-5 Days Forms: Warfarin Discharge Instruction, Discharge Signature Page Prescriptions: Valsartan [Diovan] 80 mg PO DAILY #30 tablet
[2016-07-20] MEDS: PROTONIX PO SCH (10:00)
[2016-07-20] MEDS: THERAGRAN-M Tab PO SCH (10:00)
[2016-07-20] MEDS: LASIX PO SCH (10:00)
[2016-07-20] MEDS: IMDUR PO SCH (10:00)
[2016-07-20] MEDS: COLCRYS PO SCH (10:00)
[2016-07-20] MEDS: ALDACTONE PO SCH (10:00)
[2016-07-20] MEDS: COREG PO SCH (10:00)
[2016-07-20] MEDS: K-DUR PO SCH (10:00)
[2016-07-20] MEDS: PLAVIX PO SCH (10:00)
[2016-07-20] MEDS ORDERED: DIOVAN PO SCH (10:00)
--- NOTE | 2016-07-20 10:25 | Event Note ---
Date: 07/20/16 Follow up in our [place] office with Dr. Valenzuela on 08/01/2016 @ 11:00AM. Germán DOMINGO NP / DR. VALENZUELA
[2016-07-20 10:37] LABS: Anion Gap 16 mmol/L; BUN/Creatinine Ratio 25.55; Blood Urea Nitrogen 23 mg/dL (7-17); Calcium 8.9 mg/dL (8.4-10.2); Carbon Dioxide 27 mmol/L (22-30); Chloride 102.9 mmol/L (98-107); Glucose 169 mg/dL (65-100); Potassium 3.5 mmol/L (3.6-5.0); Sodium 142 mmol/L (137-145)
== END 2016-07-20 14:19 | disposition home or self-care (01) | DRG 280 ==
LOC: ED 10:41 → 4A 16:22
PROVIDERS: ADMIT Internal Medicine; ATTEND Internal Medicine
DX: I21.4 Non-ST elevation (NSTEMI) myocardial infarction (principal); I50.23 Acute on chronic systolic (congestive) heart failure; I24.9 Acute ischemic heart disease, unspecified; I11.0 Hypertensive heart disease with heart failure; E11.9 Type 2 diabetes mellitus without complications; I25.5 Ischemic cardiomyopathy; I48.0 Paroxysmal atrial fibrillation; E78.5 Hyperlipidemia, unspecified; Z91.013 Allergy to seafood; Z88.8 Allergy status to other drugs, medicaments and biological substances; Z83.3 Family history of diabetes mellitus; Z82.49 Family history of ischemic heart disease and other diseases of the circulatory system; Z95.1 Presence of aortocoronary bypass graft; Z95.810 Presence of automatic (implantable) cardiac defibrillator
CPT/HCPCS: 36415; 71020; 74176; 78452; 80048; 80061; 82550; 82553; 82962; 83690; 83880; 84484; 85025; 85379; 85610; 85730; 93005; 93010; 93017; 93306; A9270-GY; A9502; J1940; J2405; J2785

== ENCOUNTER 2016-08-01 18:42 | Emergency (ER) | payer MEDICARE ==
[2016-08-01 19:56] VITALS: BP 127/75
--- NOTE | 2016-08-02 07:53 | XRay Report ---
LEFT ANKLE, 3 views: History: Left ankle pain. Mild osteopenia is evident. No evidence for fracture or dislocation. Mild osteoarthritic changes are identified at the tibiotalar joint. Large plantar spur. There are mild vascular calcifications in the soft tissues. IMPRESSION: Osteopenia. Osteoarthritic changes. Plantar spur. No acute process identified.
== END 2016-08-02 03:17 | disposition left against medical advice (07) ==
LOC: ED 18:42
DX: M25.572 Pain in left ankle and joints of left foot (principal); Z53.21 Procedure and treatment not carried out due to patient leaving prior to being seen by health care provider